=== PATIENT | female | born 1990 | race Hispanic/Latino ===

== ENCOUNTER → 2023-12-22 | Emergency (ER) | payer OTHER ==
[~2023-12-22] MED LIST: FAMOTIDINE 20 MG/2 ML VIAL IV ONE; KETOROLAC 30 MG/ML INJ ONE; NA CHLORIDE 0.9% 1,000 ML ONE; ONDANSETRON 4 MG/2 ML VIAL ONE
[2023-12-22 01:45] LABS: Absolute Eosinophils 0.1 K/uL (0-0.5); Absolute Lymphocytes (CBC) 2.1 K/uL (0.7-4.9); Absolute Monocytes 0.8 K/uL (0.1-1.3); Absolute Neutrophil 9.6 K/uL (1.8-8.0); Basophils % 0.3 % (0-1.3); Eosinophils % 0.8 % (0-4.4); Hematocrit 41.5 % (36.0-45.0); Hemoglobin 14.3 g/dL (12.0-15.0); Lymphocytes % 16.4 % (15.3-44.8); MCH 30.7 pg (27.0-35.0); MCHC 34.4 g/dL (32.0-36.0); MCV 89.1 fL (80-100); MPV 8.5 fL (7.6-11.3); Monocytes % 6.7 % (3.3-12.3); Neutrophils % 75.8 % (41.7-73.7); Platelets 336 thou/uL (152-406); RBC Red Blood Cell Count 4.66 M/uL (3.86-4.86)
[2023-12-22 01:51] LABS: Calcium Oxalate Crystals- Ur Many /HPF (None Seen); Specific Gravity > 1.030 (1.005-1.030); Sqamous Epithelial <5 /HPF (None Seen); Urine Bacteria None Seen /HPF (<20); Urine Bilirubin NEGATIVE (Negative); Urine Blood 1+ (Negative); Urine Clarity Extremely Turbid (Clear); Urine Color Yellow (Yellow); Urine Culture Reflex Order NOT NEEDED; Urine Glucose NEGATIVE (Negative); Urine Ketones TRACE (Negative); Urine Microscopic Reflex YN ORDER UMIC; Urine Mucus Slight /HPF (None Seen); Urine Nitrite NEGATIVE (Negative); Urine Protein TRACE (Negative); Urine Urobilinogen 1+ (Normal); Urine WBC <5 /HPF (<5); Urine pH 5.5 (5.0-7.0)
[2023-12-22 01:53] LABS: Specific Gravity > 1.030 (1.005-1.030)
[2023-12-22 01:57] LABS: Albumin 3.3 g/dL (3.4-5.0); Albumin/Globulin Ratio 0.8 (1.1-1.8); Anion Gap 11.5 mEq/L (5.0-15.0); Bilirubin Total 0.3 mg/dL (0.2-1.0); Globulin 4.2 g/dL (2.3-3.5); Potassium 3.5 mEq/L (3.5-5.1); Protein, Total 7.5 g/dL (6.4-8.2)
--- NOTE | 2023-12-22 03:48 | ER ---
Nurse's Notes [facility] Name: Renita Kendall Age: 33 yrs Sex: Female : 1990 Arrival Date: 12/22/2023 Time: 00:09 Bed 15 Private MD: Diagnosis: Calculus of gallbladder without cholecystitis without obstruction Presentation: 12/21 00:21 Chief complaint: Patient states: I have been feeling bloated and having sharp pains in jb4 the middle of my chest since 7pm. It has happened in the past and I have not done anything about it. Coronavirus screen: At this time, the client does not indicate any symptoms associated with coronavirus-19. Ebola Screen: No symptoms or risks identified at this time. Initial Sepsis Screen: Does the patient meet any 2 criteria? No. Patient's initial sepsis screen is negative. Does the patient have a suspected source of infection? No. Patient's initial sepsis screen is negative. Risk Assessment: Do you want to hurt yourself or someone else? Patient reports no desire to harm self or others. Onset of symptoms was December 22, 2023. Transition of care: patient was not received from another setting of care. 00:21 Method Of Arrival: Ambulatory jb4 00:21 Acuity: BHARAT 3 jb4 Triage Assessment: 00:23 General: Appears in no apparent distress. comfortable, Behavior is calm, cooperative. jb4 Pain: Complains of pain in right upper quadrant Pain does not radiate. Pain currently is 8 out of 10 on a pain scale. Quality of pain is described as stabbing. EENT: No signs and/or symptoms were reported regarding the EENT system. Neuro: Level of Consciousness is awake, alert, obeys commands, Oriented to person, place, time, situation. Cardiovascular: Patient's skin is warm and dry. Respiratory: Airway is patent Respiratory effort is even, unlabored, Respiratory pattern is regular, symmetrical. GI: Abdomen is non-distended, obese, Reports nausea, vomiting. : No signs and/or symptoms were reported regarding the genitourinary system. Derm: Skin is intact, Skin is pink, warm \T\ dry. Musculoskeletal: Circulation, motion, and sensation intact. Range of motion: intact in all extremities. 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 - Social history:: Smoking status: Patient denies any tobacco usage or history of. Patient uses alcohol, occasionally. Screenin:50 [facility] ED Fall Risk Assessment (Adult) History of falling in the last 3 months, cm10 including since admission No falls in past 3 months (0 pts) Confusion or Disorientation No (0 pts) Intoxicated or Sedated No (0 pts) Impaired Gait No (0 pts) Mobility Assist Device Used No (0 pt) Altered Elimination No (0 pt) Score/Fall Risk Level 0 - 2 = Low Risk Oriented to surroundings, Maintained a safe environment, Hourly rounding (assess needs \T\ fall precautionary measures) done. Abuse screen: Denies threats or abuse. Denies injuries from another. Nutritional screening: No deficits noted. Tuberculosis screening: No symptoms or risk factors identified. Assessment: 01:50 General: Appears in no apparent distress. comfortable, Behavior is calm, cooperative. cm10 Neuro: No deficits noted. Level of Consciousness is awake, alert, obeys commands, Oriented to person, place, time, situation. Respiratory: No deficits noted. Airway is patent Respiratory effort is even, unlabored, Respiratory pattern is regular, symmetrical. GI: Bowel sounds not auscultated. Abd is soft X 4 quads Abdomen is tender to palpation in right upper quadrant. Derm: No deficits noted. Skin is intact, Skin is pink, warm \T\ dry. Musculoskeletal: No deficits noted. Range of motion: intact in all extremities. 03:39 Reassessment: Patient and/or family updated on plan of care and expected duration. Pain cm10 level reassessed. Patient is alert, oriented x 3, equal unlabored respirations, skin warm/dry/pink. Patient states feeling better. Patient states symptoms have improved. Vital Signs: 00:21 BP 130 / 72; Pulse 90; Resp 16; Temp 97.3(TE); Pulse Ox 99% on R/A; Weight 71.21 kg jb4 (R); Height 5 ft. 1 in. (R); Pain 8/10; 01:33 BP 116 / 62; Pulse 80; Resp 16; Pulse Ox 100% on R/A; cm10 02:00 BP 114 / 63; Pulse 87; Resp 16; Pulse Ox 100% on R/A; cm10 02:30 BP 114 / 70; Pulse 72; Resp 16; Pulse Ox 100% on R/A; cm10 03:00 BP 116 / 71; Pulse 84; Resp 16; Pulse Ox 100% on R/A; cm10 00:21 Body Mass Index 29.66 (71.21 kg, 154.94 cm) jb4 00:21 Pain Scale: Adult jb4 ED Course: 00:13 Patient arrived in ED. im 00:23 Triage completed. jb4 00:24 Karolyn Barragan FNP-C is PHCP. kb 00:24 Amada Jha is Attending Physician. kb 00:25 Arm band placed on right wrist. jb4 01:05 Valentine Kendall, RN is Primary Nurse. cm10 01:31 CBC with Diff Sent. cm10 01:31 CMP Sent. cm10 01:31 Lipase Sent. cm10 01:31 Test, Urine Sent. cm10 01:31 Urinalysis w/ reflexes Sent. cm10 01:32 Initial lab(s) drawn, by nv, sent to lab. Urine collected: clean catch specimen. cm10 Inserted saline lock: 22 gauge in left antecubital area, using aseptic technique. Blood collected. 01:33 US Abdomen Limited In Process Unspecified. EDMS 01:50 Patient has correct armband on for positive identification. Bed in low position. Call cm10 light in reach. Side rails up X 1. Provided Education on: ER process and procedures. . Pulse ox on. NIBP on. 01:50 No provider procedures requiring assistance completed. cm10 03:58 IV discontinued, intact, bleeding controlled, No redness/swelling at site. Pressure cm10 dressing applied. Administered Medications: 01:31 Drug: NS 0.9% IV 1000 ml IV at 1 bolus Per protocol; 1000 mL bolus Route: IV; Rate: 1 cm10 bolus; Site: left antecubital; 03:35 Follow up: Response: No adverse reaction; IV Status: Completed infusion; IV Intake: cm10 1000ml 01:31 Drug: Famotidine IVP 20 mg IVP once; dilute with 10 mL 0.9% NaCl; give over 2 minutes cm10 Route: IVP; Site: left antecubital; 03:35 Follow up: Response: No adverse reaction cm10 01:31 Drug: Ondansetron IVP 4 mg IVP once; over 2 minutes Route: IVP; Site: left antecubital; cm10 03:35 Follow up: Response: No adverse reaction cm10 01:50 Drug: TORadol - Ketorolac IVP 15 mg IVP once Route: IVP; Site: left antecubital; cm10 03:35 Follow up: Response: No adverse reaction cm10 Medication: 01:50 VIS not applicable for this client. cm10 Intake: 03:35 IV: 1000ml; Total: 1000ml. cm10 Outcome: 03:48 Discharge ordered by MD. ci 03:58 Discharged to home ambulatory, cm10 03:58 Condition: good 03:58 Discharge instructions given to patient, Instructed on discharge instructions, follow up and referral plans. medication usage, Demonstrated understanding of instructions, follow-up care, medications, Prescriptions given X 2, 03:59 Patient left the ED. cm10 Signatures: Dispatcher [employer] EDMS Karolyn Barragan, INSTRUCTOR WATCH ASSEMBLY-C INSTRUCTOR WATCH ASSEMBLY-Adonayb Rob Sellers, RN RN jb4 Caitlyn Swan Clarissa, RN RN cm10 [email or web address]
--- NOTE | 2023-12-22 03:48 | EDPHYS ---
Physician Documentation [facility] Name: Renita Kendall Age: 33 yrs Sex: Female : 1990 Arrival Date: 12/22/2023 Time: 00:09 Bed 15 Private MD: ED Physician Amada Jha HPI: 12/21 00:24 This 33 yrs old Female presents to ER via Ambulatory with complaints of Abdominal Pain. kb 00:24 Patient is a 33-year-old female who presents with epigastric pain, nausea, vomiting kb that started at 1900 this evening. Denies diarrhea or fever. States this happens occasionally is normally spread months apart but this time is worse and has been constant since onset. States she is never got it evaluated in the past.. 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 - Social history:: Smoking status: Patient denies any tobacco usage or history of. Patient uses alcohol, occasionally. ROS: 00:24 Constitutional: As per HPI kb Exam: 00:24 Constitutional: This is a well developed, well nourished patient who is awake, alert, kb and in no acute distress. Head/Face: Normocephalic, atraumatic. ENT: Moist Mucous membranes Cardiovascular: Regular rate Respiratory: Respirations even and unlabored. No increased work of breathing. Talking in full sentences Skin: Warm, dry with normal turgor. Normal color. MS/ Extremity: Pulses equal, no cyanosis. Neurovascular intact. Full, normal range of motion. Neuro: Awake and alert, GCS 15, oriented to person, place, time, and situation. Moves all extremities. Normal gait. 00:24 Abdomen/GI: Inspection: abdomen appears normal, Bowel sounds: normal, Palpation: soft, in the epigastric area and right upper quadrant, moderate abdominal tenderness, Vital Signs: 00:21 BP 130 / 72; Pulse 90; Resp 16; Temp 97.3(TE); Pulse Ox 99% on R/A; Weight 71.21 kg jb4 (R); Height 5 ft. 1 in. (R); Pain 8/10; 01:33 BP 116 / 62; Pulse 80; Resp 16; Pulse Ox 100% on R/A; cm10 02:00 BP 114 / 63; Pulse 87; Resp 16; Pulse Ox 100% on R/A; cm10 02:30 BP 114 / 70; Pulse 72; Resp 16; Pulse Ox 100% on R/A; cm10 03:00 BP 116 / 71; Pulse 84; Resp 16; Pulse Ox 100% on R/A; cm10 00:21 Body Mass Index 29.66 (71.21 kg, 154.94 cm) jb4 00:21 Pain Scale: Adult jb4 MDM: 00:24 Patient medically screened. kb 00:26 Differential diagnosis: cholecystitis, Cholelithiasis, gastroesophageal reflux disease, kb non-specific abd pain, pancreatitis. Data reviewed: vital signs, nurses notes. 00:38 Transition of care: After a detail discussion of the patient's case, care is kb transferred to [facility]. 03:46 ED course: Right upper quadrant ultrasound shows cholelithiasis without evidence of ci cholecystitis. Pain significantly improved. Will discharge with referral to [facility] [place].. [id number] 00:36 Order name: CBC with Diff; Complete Time: 02:03 kb 12/21 00:36 Order name: CMP; Complete Time: 02:03 kb 12/21 00:36 Order name: Lipase; Complete Time: 02:03 kb 18 00:36 Order name: Test, Urine; Complete Time: 02:03 kb 18 00:36 Order name: Urinalysis w/ reflexes; Complete Time: 02:03 kb 12/21 00:36 Order name: US Abdomen Limited kb 12/21 00:36 Order name: IV Saline Lock; Complete Time: 01:32 kb 12/21 00:36 Order name: Labs collected and sent; Complete Time: 01:31 kb Administered Medications: 01:31 Drug: NS 0.9% IV 1000 ml IV at 1 bolus Per protocol; 1000 mL bolus Route: IV; Rate: 1 cm10 bolus; Site: left antecubital; 03:35 Follow up: Response: No adverse reaction; IV Status: Completed infusion; IV Intake: cm10 1000ml 01:31 Drug: Famotidine IVP 20 mg IVP once; dilute with 10 mL 0.9% NaCl; give over 2 minutes cm10 Route: IVP; Site: left antecubital; 03:35 Follow up: Response: No adverse reaction cm10 01:31 Drug: Ondansetron IVP 4 mg IVP once; over 2 minutes Route: IVP; Site: left antecubital; cm10 03:35 Follow up: Response: No adverse reaction cm10 01:50 Drug: TORadol - Ketorolac IVP 15 mg IVP once Route: IVP; Site: left antecubital; cm10 03:35 Follow up: Response: No adverse reaction cm10 Disposition Summary: 12/22/23 03:48 Discharge Ordered Notes: Location: Home ci Condition: Stable ci Diagnosis - Calculus of gallbladder without cholecystitis without obstruction ci Followup: ci - With: Private Physician - When: 1 week - Reason: Recheck today's complaints, Re-evaluation by your physician Discharge Instructions: - Discharge Summary Sheet ci - Cholelithiasis, [id number] ci Forms: - Medication Reconciliation Form ci - Thank You Letter ci - Antibiotic Education ci - Prescription Opioid Use ci - Patient Portal Instructions ci - Leadership Thank You Letter ci Prescriptions: - Anaprox DS 550 mg Oral Tablet - take 1 tablet ORAL route every 12 hours As needed; 20 tablet; Refills: 0, ci Product Selection Permitted - Zofran 4 mg Oral tablet - take 1 tablet ORAL route every 6 hours As needed; 20 tablet; Refills: 0, ci Product Selection Permitted Signatures: Dispatcher [employer] Karolyn Segovia FNP-C FNP-Ckb Bryson, James, RN RN jb4 Valentine Kendall RN RN cm10 Amada Jha ci
[2023-12-22 04:13] VITALS: BP 116/71; TEMP 97.3; O2SAT 100
--- NOTE | 2023-12-22 13:15 | RAD REPORT ---
EXAM DESCRIPTION: US - Abdomen Exam Limited - 12/22/2023 1:31 am CLINICAL HISTORY: 33 years Female; ABD PAIN TECHNIQUE: Limited gallbladder ultrasound was performed. COMPARISON: None. FINDINGS: Gallstones visualized. Negative sonographic Wilson sign. Gallbladder wall measures 1 mm. Common bile duct measures 3 mm. Increased echogenicity of the visualized liver parenchyma. IMPRESSION: 1. Cholelithiasis without sonographic evidence of acute cholecystitis. 2. Hepatic steatosis. Electronically signed by: Michelle Rey MD 12/22/2023 02:21 AM CDT Due to temporary technical issues with the PACS/Fluency reporting system, reports are being signed by the in house radiologist without review as a courtesy to ensure prompt reporting. The interpreting r adiologist is fully responsible for the content of the report.
== END ==
LOC: ER 00:09
DX: K80.20 Calculus of gallbladder without cholecystitis without obstruction (principal)
CPT/HCPCS: 85025; 81001; 36415; 81025; 83690; 80053; 76705; J2405; J7030; 96361; 96374; 96375; 99284